=== PATIENT | female | born 1955 | race African-American/Black ===

== ENCOUNTER 2023-02-24 09:45 | Emergency (ER) | payer MEDICAID ==
[~2023-02-24] VITALS: Ht 165.1 cm; Wt 68.0 kg
[~2023-02-24 09:45] MED LIST: CHLO25TA2 PO; CIME400T PO; LISI20TA31 PO
[2023-02-24 09:55] VITALS: TEMP 98; O2SAT 98
[2023-02-24 10:30] VITALS: BP 131/60; PULSE 64; RESP 20
[2023-02-24] MEDS ORDERED: LIDOCAINE 5% PATCH TOP SCH (10:30)
[2023-02-24] MEDS ORDERED: KETOROLAC 30MG/ML VIAL IM ONE (10:30)
[2023-02-24] MEDS ORDERED: NAPR-1176 MT (10:45)
[2023-02-24] MEDS ORDERED: CYCL5TAB MT (10:45)
[2023-02-24] MEDS ORDERED: LIDO700A15 TP (10:45)
== END 2023-02-24 11:14 | disposition home or self-care (01) ==
LOC: ER 09:45
DX: M54.32 Sciatica, left side (principal); J45.909 Unspecified asthma, uncomplicated; I11.0 Hypertensive heart disease with heart failure; I50.9 Heart failure, unspecified; Z88.0 Allergy status to penicillin; Z90.49 Acquired absence of other specified parts of digestive tract
CPT/HCPCS: 99283; J1885